=== PATIENT | male | born 1960 | race Caucasian/White ===

== ENCOUNTER 2017-06-23 06:49 | Emergency (ER) | payer OTHER ==
[~2017-06-23] VITALS: Ht 177.8 cm; Wt 74.8 kg
[2017-06-23] MEDS ORDERED: CENTRUM SILVER1 EAC2 PO (06:56)
[2017-06-23] MEDS ORDERED: IBUPROFEN 200200 M1 PO (06:56)
[2017-06-23] MEDS ORDERED: KEFLEX500 M1 PO (08:46)
[2017-06-23] MEDS ORDERED: NORCO 5-325 TA1 EACH PO (08:46)
[2017-06-23 08:57] VITALS: BP 134/70
--- NOTE | 2017-06-23 15:58 | CON ---
[address] [address] CONSULTATION Name: DAEZEINAB Menezes Room: [facility] Mikala#: [id number] Admission: 06/23/17 Attend Phys: Discharge: 06/23/17 Date of : 62 Report #: [id number] THIS REPORT FOR: //name// CC: Scooby Aragon DATE OF SERVICE: 06/23/2017 ORTHOPEDIC EMERGENCY ROOM CONSULT AND PROCEDURE NOTE HISTORY: The patient is a 57-year-old right-hand dominant, sitting in air conditioning gentleman that had a tailgate fall down onto his right index finger, which is his dominant arm today. He presented through the Emergency Room for evaluation and treatment. The patient at this point in time also has had previous right biceps tendon repair by Dr. Pedraza elsewhere and his works for them. The patient at this point in time says his finger is numb. He is, however, was numb when he came in he said and he also had a digital block prior to our arrival. ALLERGIES: The patient has no allergies. MEDICATIONS: He currently is on no major medications. PAST MEDICAL HISTORY: Recently for the biceps tendon rupture on the right arm and surgical repair. otherwise, x-rays taken of the right index finger show a comminuted distal phalanx fracture. This is open. The patient's fracture extends down to the distal phalanx. Upon inspection of the right upper extremity demonstrates that the patient's nail is still present, but the laceration from the injury goes through the entire dorsal side of the finger just proximal to the nail matrix area and extends circumferentially except for approximately 1 cm of the skin and subcutaneous tissue on the volar side. The patient at this point in time does not have any sensation as stated secondary to digital block. The color of the skin on distal tip is overall fairly good yet despite this severe injury. At this point in time, I discussed with this patient. We will do a surgical washout of this fingertip in the Emergency Room and then attempt to do a simple reapproximation of the distal finger. The severity of this injury was discussed with him and his that this may lose the fingertip. The patient is well aware of this, but we are going to give him the benefit of the doubt at the present time. The patient at this point in time had a chlorhexidine prep of this right index finger, the nail bed was now removed. A better delineation of the nail bed injury, which definitely was present on both sides was noted and copiously irrigated again. Using 4-0 nylon, the nail bed [place] [address] CONSULTATION Name: DAEZEINAB Riri Room: [facility] ([place], [place])Viv#: [id number] Admission: 06/23/17 Attend Phys: Discharge: 06/23/17 Date of : 62 Report #: [id number] circumferential repair of this distal fingertip. Post reapproximation of the finger looks significantly better. There was no gross cyanosis to the fingertip at this present time. He was now placed in Xeroform, gauze dressing to this right upper extremity. He had a tetanus update in the Emergency Room. He will be given Keflex and some [place]. They do want to follow up with Dr. Pedraza, since they know him. This is a work comp injury. The patient did not have any other questions or concerns nor his . The patient is definitely comfortable to follow up with us if he so desires. I did discuss with both of them. At times, we can try to put in a pin to stabilize the distal tip on the finger, but following what we did, it looked fairly decent that the pin was not placed at this time and might be done later if Dr. Pedraza chooses. In any event, it has been our pleasure taking care of the patient today for the crush injury with the open distal comminuted phalanx fracture of the right index finger. <ELECTRONICALLY SIGNED> By: John Zuñiga DO 06/23/17 [id number] Zuñiga DO /sarah
== END 2017-06-23 09:21 | disposition home or self-care (01) ==
LOC: M.ERS 06:49
DX: S61.201A Unspecified open wound of left index finger without damage to nail, initial encounter (principal); W23.0XXA Caught, crushed, jammed, or pinched between moving objects, initial encounter; Y93.89 Activity, other specified; Y92.89 Other specified places as the place of occurrence of the external cause; Y99.8 Other external cause status

== ENCOUNTER → 2020-10-11 | Outpatient (CLI) | payer OTHER ==
[~2020-10-11] MED LIST: CENTRUM SILVER1 EAC2 PO; IBUPROFEN 200200 M1 PO; KEFLEX500 M1 PO; NORCO 5-325 TA1 EACH PO
== END ==
LOC: M.RAD 14:50
PROVIDERS: ATTEND Family Medicine
DX: M51.36 Other intervertebral disc degeneration, lumbar region (principal); M16.0 Bilateral primary osteoarthritis of hip; M54.5 Low back pain; M25.551 Pain in right hip; M25.552 Pain in left hip